=== PATIENT | female | born 1965 | race Caucasian/White ===

== ENCOUNTER 2019-06-23 13:17 | Emergency (ER) | payer OTHER, SELFPAY ==
--- NOTE | 2019-06-23 13:27 | DI.RAD.S_ITS ---
PROCEDURE: XR FINGER LT MIN 2V INDICATIONS: trauma TECHNIQUE: AP hand, 2 views of the second finger(s) acquired. COMPARISON: None. FINDINGS: Bones: There is a dislocation at the PIP of the second finger. No fractures are identified. Soft tissues: No suspicious soft tissue calcifications. IMPRESSION: Second PIP dislocation. Dictated by: Kj Escobar M.D. on 06/23/2019 at 14:25 Approved by: Kj Escobar M.D. on 06/23/2019 at 14:27
[2019-06-23 13:37] VITALS: BP 104/72; PULSE 62; RESP 13; TEMP 35.9; O2SAT 97
--- NOTE | 2019-06-23 14:32 | ED.UPPEXIN ---
HPI - Extremity Injury (Upper) <ANGELI Camacho - Last Filed: 06/23/19 22:58> General Chief Complaint: Extremity Injury, Upper Stated Complaint: Broke Left Index Finger Time Seen by Provider: 06/23/19 13:50 Source: patient Mode of arrival: Ambulatory Limitations: no limitations History of Present Illness HPI narrative: This is 54-year-old female, nonsmoker, who presents to ED with left index finger deformity, hyper extended. Patient reports he tripped on bed and fell while going to the bathroom and had FOOSHED on affected hand/finger. Patient reports significant sharp and throbbing pain and rated as 7/10 and some tingling and numbness. No previous injury to same hand in the past. Patient right dominant hand. Patient also had he hit right cheek while falling down but reports pain is not as significant at this time. Patient denies mid cervical pain and tingling/numbness to upper extremities. Patient denies loss of consciousness, vision change, vomiting since the fall. Related Data Home Medications Medication Instructions Recorded Confirmed sertraline 50 mg PO DAILY 06/23/19 06/23/19 Allergies Allergy/AdvReac Type Severity Reaction Status Date / Time No Known Drug Allergies Allergy Unverified 01/16/18 09:19 Review of Systems <ANGELI Camacho Last Filed: 06/23/19 22:58> Review of Systems Narrative: General: Denies fever, chills, fatigue, malaise, sweats. HEENT: Denies sinus pain, ear pain, sore throat, difficulty swallowing, dizziness. Respiratory: Denies dyspnea, cough, wheezing, hemoptysis, sputum. Cardiovascular: Denies chest pain, palpitations, orthopnea, edema. Gastrointestinal: Denies nausea, vomiting, abdominal pain, diarrhea, constipation, melena. : Denies dysuria, frequency, incontinence, hematuria, urinary retention. Musculoskeletal: See HPI Skin: Denies rash, skin lesions, or other. Neurologic: Denies weakness, headache, numbness, change in speech, confusion, seizures, incoordination. Psychiatric: No concerning psychosocial issues. 12-point review of systems is negative except for those stated above. Patient History <ANGELI Camacho - Last Filed: 06/23/19 22:58> Social History Smoking Status: Former smoker Substance Use Type: does not use Exam <ANGELI Camacho - Last Filed: 06/23/19 22:58> Narrative Exam Narrative: General appearance: well developed, well nourished, in no acute distress. Head: normocephalic, atraumatic, no scalp lesions, non-tender. Small contusion to L cheek, no crepitus to palpate. Eye: pupil equal, round. EOMI. Nose: nares patent. Oral: mucosa moist. Neck/Thyroid: neck supple, full range of motion, no visible masses. Skin: no suspicious rashes, lesions over visible areas. Warm and dry. Heart: no clubbing, no cyanosis, no edema. Lungs: Breathing even and unlabored. No stridor. No accessory muscles used. Chest: normal shape and expansion. Abdomen: non-obese, non-distended. Neurologic: alert and oriented. Cognitive exam, [employer] SAL[employer]EC[employer] and PNS grossly intact on informal exam. Psych: good eye contact, normal affect. Initial Vital Signs Initial Vital Signs: Vital Signs Temperature 96.7 F L 06/23/19 13:37 Pulse Rate 62 06/23/19 13:37 Respiratory Rate 13 06/23/19 13:37 Blood Pressure 104/72 06/23/19 13:37 Pulse Oximetry 97 06/23/19 13:37 Extrem Left upper extremity: shoulder/upper arm Details: inspection abnormal and normal ROM, elbow/forearm Details: normal to inspection, wrist Details: normal to inspection and normal ROM and hand Details: abnormal to inspection Details: a deformity (Hyper extended from proximal finger) Location: of the 2nd digit, neuromotor exam abnormal, neurosensory exam abnormal, abnormal ROM of finger and no swelling <Amy Park MD - Last Filed: 06/25/19 04:40> Initial Vital Signs Initial Vital Signs: Vital Signs Temperature 96.7 F L 06/23/19 13:37 Pulse Rate 62 06/23/19 13:37 Respiratory Rate 13 06/23/19 13:37 Blood Pressure 104/72 06/23/19 13:37 Pulse Oximetry 97 06/23/19 13:37 Procedures <ANGELI Camacho - Last Filed: 06/23/19 22:58> Orthopedic Joint Reduction Joint #1: Time Out Performed: Yes Side: left Joint Reduction Location: finger (2nd digit) Analgesia: nerve block and other (Dilaudid 1mg IM) Local Anesthesia: lidocaine 1% and with bicarb Amount of anesthesic used (mL): 1.5 Technique used: traction/counter-traction Post-reduction neuro exam: intact Post-reduction vascular: intact Post Reduction X-Ray Obtained: Yes Post Reduction X-Ray Results: reduced Splint Applied: Yes Patient Tolerated Procedure: Well Orthopedic Splinting/Casting Injury #1: Side: left Upper Extremity Injury Location: finger Upper Extremity Immobilizer: aluminum form splint and Randell wrap Post splinting neuro exam: intact Post splinting vascular exam: intact Placed by: Nursing Scores <ANGELI Camacho - Last Filed: 06/23/19 22:58> GCS Lori coma scale eye opening: Spontaneous Lori coma scale verbal response: Orientated [place] coma scale motor response: Obey commands Lori coma scale total score: 15 Nexus Score for C-Spine Focal Neurologic deficit present: No Midline spinal tenderness present: No Altered level of conciousness present: No Intoxication present: No Distracting Injury Present: Yes Nexus Criteria for C-spine: 1 Citation:: [place] CT head injury/trauma rule score 0. Course <ANGELI Camacho - Last Filed: 06/23/19 22:58> Orders Ordered: Discontinued Medications Hydromorphone HCl (Dilaudid) 1 mg IM NOW ONE Stop: 06/23/19 14:51 Last Admin: 06/23/19 14:58 Dose: 1 mg Documented by: CALVIN Lidocaine/Sodium Bicarbonate (Buffered Lidocaine 10 Ml Syr) 10 ml INJ NOW ONE Stop: 06/23/19 14:34 Vital Signs Vital signs: Vital Signs - 8 hr 06/23/19 13:37 Temperature 96.7 F L Pulse Rate 62 Respiratory Rate 13 Blood Pressure 104/72 Pulse Oximetry 97 <Amy Park MD - Last Filed: 06/25/19 04:40> Orders Ordered: Discontinued Medications Hydromorphone HCl (Dilaudid) 1 mg IM NOW ONE Stop: 06/23/19 14:51 Last Admin: 06/23/19 14:58 Dose: 1 mg Documented by: CALVIN Lidocaine/Sodium Bicarbonate (Buffered Lidocaine 10 Ml Syr) 10 ml INJ NOW ONE Stop: 06/23/19 14:34 Vital Signs Vital signs: Vital Signs - 8 hr 06/23/19 13:37 Temperature 96.7 F L Pulse Rate 62 Respiratory Rate 13 Blood Pressure 104/72 Pulse Oximetry 97 MDM - Extremity Injury (Upper) <ANGELI Camacho - Last Filed: 06/23/19 22:58> Differential Diagnosis Differential diagnosis: Likely finger sprain, dislocation of finger and other (Finger fracture) Medical Records Attestation: I reviewed the patient's medical records. Imaging Data XR-Finger LT: Radiologist's impression: [address] [address] XRay Report Signed Patient: Berenice Morocho [facility]#: [id number] : 1965Acct:[id number] Age/Sex: 54 / FDate of Service: 06/23/19 Loc: ED Accession Number: [id number] Procedure: XR finger LT min 2V Ordering Provider: Amy Park MD PROCEDURE: XR FINGER LT MIN 2V INDICATIONS: trauma TECHNIQUE: AP hand, 2 views of the second finger(s) acquired. COMPARISON: None. FINDINGS: Bones: There is a dislocation at the PIP of the second finger. No fractures are identified. Soft tissues: No suspicious soft tissue calcifications. IMPRESSION: Second PIP dislocation. Dictated by: Kj Escobar M.D. on 06/23/2019 at 14:25 Approved by: Kj Escobar M.D. on 06/23/2019 at 14:27 XR-Finger LT #2 post reduction: Radiologist's impression: [address] [address] XRay Report Signed Patient: Berenice Morocho [facility]#: [id number] : 1965Acct:[id number] Age/Sex: 54 / FDate of Service: 06/23/19 Loc: ED Accession Number: [id number] Procedure: XR finger LT min 2V Ordering Provider: Daryl Fletcher PROCEDURE: XR FINGER LT MIN 2V INDICATIONS: post reduction of dislocation TECHNIQUE: AP hand, 2 views of the index finger(s) acquired. COMPARISON: [facility] , XR FINGER LT MIN 2V, 06/23/2019, 13:26. FINDINGS: Bones: There is a very subtle avulsion fracture identified along the volar base of the middle phalanx of the index finger. The alignment of the joint is anatomic. No additional acute fractures are seen. An old ulnar styloid process fractures evident. Soft tissues: No suspicious soft tissue calcifications. Soft tissue swelling about the index finger is present. No radiopaque foreign bodies. IMPRESSION: 1. Interval PIP joint reduction of the index finger. 2. Small avulsion fracture along the volar base of the middle phalanx of the index finger. Dictated by: Jonathan Mckinnon M.D. on 06/23/2019 at 15:03 Approved by: Jonathan Mckinnon M.D. on 06/23/2019 at 15:04 [facility] Narrative Medical decision making narrative: This is a 54-year-old female accidentally tripped on a bed and had FOOSH and landed on her left hand to break a fall. She complain of pain with deformity of hyper flexed left index finger. Patient had intact sensation on affected finger with cap refill. Initial x-ray test showed a dislocation at the PIP on the 2nd finger of left hand without fractures. Digital nerve block was done prior to closed reduction. Patient reports mildly improved but unrelieved pain. Patient was medicated with IM injection of Dilaudid. Closed reduction was done on affected finger and repeat x-ray was obtained. Please see procedural note. Post reduction x-ray test showed very subtle avulsion fracture along the volar base of the middle phalanx of the index finger. Aluminum splint was applied on affected finger with Randell wrap. Patient advised to use RICE therapy and OTC Tylenol and Motrin for discomfort and advised to follow up with PCP and [facility] orthopedist. Patient verbalized understanding and agrees with treatment plan. Discharge Plan Departure Patient Disposition: Home Clinical Impression: Dislocation of finger, interphalangeal joint, left, closed Qualifiers: Encounter type: initial encounter Qualified Code(s): S63.279A - Dislocation of unspecified interphalangeal joint of unspecified finger, initial encounter Finger fracture, left Qualifiers: Encounter type: initial encounter Finger: index finger Fracture type: closed Phalanx: middle Fracture alignment: nondisplaced Qualified Code(s): S62.651A - Nondisplaced fracture of middle phalanx of left index finger, initial encounter for closed fracture Contusion, cheek Qualifiers: Encounter type: initial encounter Qualified Code(s): S00.83XA - Contusion of other part of head, initial encounter Discharge Date/Time: 06/23/19 17:02 Instructions: DI for Finger Fracture, DI for Finger Dislocation, DI for Contusion Activity Restrictions/Additional Instructions: You have been diagnosed with [left 2nd finger interval PIP joint reduction with small avulation fraacture on the middle finger from a fall and face contusion ]. What to do: *Take your me dications as directed. You can take [id number] Tylenol and or Motrin as needed for discomfort. Tylenol up to 4000 mg in 24 hour period and ibuprofen 600-800 mg as needed 3 times a day with food. Please use ice on her face and finger for about 20 minutes on and off at least 4 times a day and elevate the affected finger to decrease swelling. *Follow up with your primary care provider in 2-3 days, call for an appointment. Let them know you were seen in the ED and that we asked you to be seen in follow up. Please contact [facility] orthopedist to follow up with her finger fracture and dislocation for an evaluation. *Return to ED if you have any new, worsening, or concerning symptoms, such as [weakness to the affected hand, increasing tingling and numbness to her finger. Chest pain, breathing difficulty, unable to tolerate fluids, or any acute concerns.]. Prescriptions: No Action sertraline 50 mg tablet 50 mg PO DAILY RF: 0 Referrals: [facility] [Provider Group] Jasmine Lee PA-C [Non-Staff] -
[2019-06-23] MEDS: HYDROMORPHONE 1 MG INJ IM (14:58)
--- NOTE | 2019-06-23 15:28 | DI.RAD.S_ITS ---
PROCEDURE: XR FINGER LT MIN 2V INDICATIONS: post reduction of dislocation TECHNIQUE: AP hand, 2 views of the index finger(s) acquired. COMPARISON: [facility], CR, XR FINGER LT MIN 2V, 06/23/2019, 13:26. FINDINGS: Bones: There is a very subtle avulsion fracture identified along the volar base of the middle phalanx of the index finger. The alignment of the joint is anatomic. No additional acute fractures are seen. An old ulnar styloid process fractures evident. Soft tissues: No suspicious soft tissue calcifications. Soft tissue swelling about the index finger is present. No radiopaque foreign bodies. IMPRESSION: 1. Interval PIP joint reduction of the index finger. 2. Small avulsion fracture along the volar base of the middle phalanx of the index finger. Dictated by: Jonathan Mckinnon M.D. on 06/23/2019 at 15:03 Approved by: Jonathan Mckinnon M.D. on 06/23/2019 at 15:04
== END 2019-06-23 17:02 | disposition home or self-care (01) ==
PROVIDERS: Emergency Provider Nurse Practitioner Family
DX: S63.271A Dislocation of unspecified interphalangeal joint of left index finger, initial encounter (principal); S62.651A Nondisplaced fracture of middle phalanx of left index finger, initial encounter for closed fracture; S00.83XA Contusion of other part of head, initial encounter; W01.0XXA Fall on same level from slipping, tripping and stumbling without subsequent striking against object, initial encounter
CPT/HCPCS: 26770; 64450; 73140; 96372; 99283; J1170

== ENCOUNTER → 2019-08-27 11:56 | Outpatient (CLI) | payer OTHER, SELFPAY ==
[2019-08-27 12:40] LABS: Add Manual Diff / Slide Review NO; Basophils Absolute Auto 0 /uL (0-100); Eosinophils Absolute Auto 200 /uL (0-450); Hematocrit 40.4 % (36-46); Hemoglobin 13.7 g/dL (12.0-16.0); Lymphocytes Absolute Auto 1000 /uL (1100-4500); Lymphocytes Percent Auto 31.2 % (25-40); Mean Corpuscular HGB Conc 33.8 % (30-36); Mean Corpuscular Hemoglobin 31.9 PG (26-34); Mean Corpuscular Volume 94.3 fL (80-100); Monocytes Absolute Auto 300 /uL (0-900); Monocytes Percent Auto 9.8 % (3-14); Neutrophils Absolute Auto 1700 /uL (1500-7000); Platelet Count 212 X10^3/uL (150-400); Red Blood Cell Count 4.28 X10^6/uL (4.0-5.2); White Blood Cell Count 3.1 X10^3/uL (4.5-11.0)
[2019-08-27 12:57] LABS: Alanine Aminotransferase 19 IU/L (<35); Albumin 4.6 g/dL (3.5-5.0); Albumin Globulin Ratio 1.7 (1.0-2.8); Alkaline Phosphatase 64 U/L (38-126); Aspartate Aminotransferase 25 IU/L (14-36); BUN Creatinine Ratio 17.5 (6-22); Bilirubin Total 0.4 mg/dL (0.2-1.3); Blood Urea Nitrogen 14 mg/dL (7-17); Calcium 9.9 mg/dL (8.4-10.2); Carbon Dioxide 27 mmol/L (22-32); Chloride 107 mmol/L (98-107); Cholesterol 210 mg/dL (140-199); Estimated Glomerular Filt Rate > 60.0 mL/min (>60); Globulin 2.7 g/dL (1.7-4.1); Glucose 106 mg/dL (70-100); HDL Cholesterol 78 mg/dL (40-60); HEMOLYSIS < 15 (0-50); LDL Cholesterol Calculated 112 mg/dL (<100); Potassium 4.3 mmol/L (3.4-5.1); Sodium 142 mmol/L (137-145); Total Protein 7.3 g/dL (6.3-8.2); Triglycerides 99 mg/dL (35-150)
[2019-08-27 13:13] LABS: Free T3, Triiodothyronine Free 3.33 pg/mL (2.77-5.27)
[2019-08-27 13:27] LABS: Thyroid Stimulating Hormone 0.71 uIU/mL (0.47-4.68)
[2019-08-30 16:15] LABS: Thyroid Peroxidase Antibodies < 1 IU/mL (< 9)
== END ==
PROVIDERS: PCP Naturopath; Visit Provider Naturopath
DX: Z00.00 Encounter for general adult medical examination without abnormal findings (principal)
CPT/HCPCS: 36415; 80053; 80061; 84439; 84443; 84481; 85025; 86376